=== PATIENT | female | born 1985 | race Caucasian/White ===

== ENCOUNTER 2016-09-08 10:42 | Outpatient (RCR) | payer OTHER ==
[~2016-09-08 10:42] MED LIST: ACET50TA PO; COLA100C PO; GLYB25TA PO; IBUP-1114 PO; PRENTAB9 PO
== END 2016-09-12 ==
LOC: M PT 10:42
PROVIDERS: ATTEND Occupational Therapist
DX: Z51.89 Encounter for other specified aftercare (principal); R20.2 Paresthesia of skin

== ENCOUNTER 2016-10-02 10:18 | Outpatient (RCR) | payer OTHER | END 2016-10-10 | LOC: M PT 10:18 | PROVIDERS: ATTEND Occupational Therapist | DX: Z51.89 Encounter for other specified aftercare (principal); R20.2 Paresthesia of skin ==